=== PATIENT | female | born 1990 | race American Indian/Alaskan Native ===

== ENCOUNTER 2021-04-24 12:59 | Emergency (ER) | payer OTHER ==
[2021-04-24 13:11] VITALS: BP 145/94
--- NOTE | 2021-04-24 14:06 | Emergency Department Report ---
ED General Adult HPI - General Chief complaint: Extremity Problem,Nontraumatic Stated complaint: CHEST PAIN,PAIN AND NUMBNESS IN RT LEG Time Seen by Provider: 04/24/21 13:52 Source: patient Mode of arrival: Ambulatory Limitations: No Limitations - History of Present Illness Initial comments: 31-year-old -[place] female patient without past medical history presents with complaints of bilateral lower leg pain x3 to 4 months. She states the pain is intermittent and shooting in sometimes tingling. She states she came in today because the pain has suddenly worsened in the right leg after a plane ride to [place]. She denies any swelling, weakness/difficulty with ambulation, back pain/injuries, history of cancer, or skin changes. She also denies hormone use, history of DVT/PE, cough, shortness of breath, or chest pain. She rates her current pain as 8/10 in severity and states it occurs only with ambulation and to touch. No direct injuries to the legs per patient. Patient also reports intermittent bruising to the legs with out injury. No history of anemia or other bleeding disorders per patient - Related Data Allergies Allergy/AdvReac Type Severity Reaction Status Date / Time No Known Allergies Allergy Verified 04/24/21 13:10 ED Review of Systems ROS: Stated complaint: CHEST PAIN,PAIN AND NUMBNESS IN RT LEG Other details as noted in HPI Constitutional: denies: chills, fever Respiratory: denies: cough, shortness of breath Cardiovascular: denies: chest pain Gastrointestinal: denies: abdominal pain Musculoskeletal: denies: back pain, joint swelling, arthralgia Skin: denies: lesions, change in color Neurological: denies: headache, numbness, abnormal gait Hematological/Lymphatic: easy bruising ED Past Medical Hx - Past Medical History Previous Medical History?: No - Surgical History Past Surgical History?: No ED Physical Exam - General Limitations: No Limitations General appearance: alert, in no apparent distress - Head Head exam: Present: atraumatic, normocephalic - Eye Eye exam: Present: normal appearance. Absent: scleral icterus - Neck Neck exam: Present: normal inspection - Respiratory Respiratory exam: Present: normal lung sounds bilaterally. Absent: respiratory distress - Cardiovascular Cardiovascular Exam: Present: regular rate, normal rhythm - Extremities Exam Extremities exam: Present: calf tenderness (right), other (Pedal pulses are normal bilaterally; no skin changes noted to the lower extremity) - Back Exam Back exam: Present: full ROM - Neurological Exam Neurological exam: Present: alert, oriented X3, normal gait - Psychiatric Psychiatric exam: Present: normal affect, normal mood - Skin Skin exam: Present: warm, dry, intact, normal color. Absent: rash ED Course Vital Signs 04/24/21 13:10 Temperature 98.9 F Pulse Rate 97 H Respiratory 19 Rate Blood Pressure 145/94 O2 Sat by Pulse 96 Oximetry ED Medical Decision Making - Lab Data Result diagrams: 04/24/21 14:40 04/24/21 14:40 Lab Results 04/24/21 04/24/21 04/24/21 Range/Units 14:40 14:40 14:40 WBC 9.5 (4.5-11.0) K/mm3 RBC 4.11 (3.65-5.03) M/mm3 Hgb 12.4 (10.1-14.3) gm/dl Hct 37.5 (30.3-42.9) % MCV 91 (79-97) fl MCH 30 (28-32) pg MCHC 33 (30-34) % RDW 13.6 (13.2-15.2) % Plt Count 402 (140-440) K/mm3 Lymph % (Auto) 24.2 (13.4-35.0) % [place] % (Auto) 6.9 (0.0-7.3) % Eos % (Auto) 0.8 (0.0-4.3) % Baso % (Auto) 0.4 (0.0-1.8) % Lymph # (Auto) 2.3 (1.2-5.4) K/mm3 [place] # (Auto) 0.7 (0.0-0.8) K/mm3 Eos # (Auto) 0.1 (0.0-0.4) K/mm3 Baso # (Auto) 0.0 (0.0-0.1) K/mm3 Seg Neutrophils % 67.7 (40.0-70.0) % Seg Neutrophils # 6.4 (1.8-7.7) K/mm3 PT 12.3 (12.2-14.9) Sec. INR 0.87 (0.87-1.13) APTT 29.7 (24.2-36.6) Sec. Sodium 139 (137-145) mmol/L Potassium 4.6 (3.6-5.0) mmol/L Chloride 103.6 (98-107) mmol/L Carbon Dioxide 25 (22-30) mmol/L Anion Gap 15 mmol/L BUN 8 (7-17) mg/dL Creatinine 0.6 (0.6-1.2) mg/dL Estimated GFR > 60 ml/min BUN/Creatinine Ratio 13 % Glucose 108 H (65-100) mg/dL Calcium 9.4 (8.4-10.2) mg/dL Total Bilirubin 0.30 (0.1-1.2) mg/dL AST 26 (5-40) units/L ALT 36 (7-56) units/L Alkaline Phosphatase 75 (35-129) units/L Total Protein 7.0 (6.3-8.2) g/dL Albumin 4.4 (3.9-5) g/dL Albumin/Globulin Ratio 1.7 % - Radiology Data Radiology results: report reviewed DUPLEX DOPPLER LOWER EXTREMITY VEINS, RIGHT INDICATION / CLINICAL INFORMATION: pain, recent travel. TECHNIQUE: Duplex doppler imaging was performed through the veins of the right lower extremity using venous compression and other maneuvers. COMPARISON: None available. FINDINGS: RIGHT COMMON FEMORAL VEIN: Negative. RIGHT FEMORAL VEIN: Negative. RIGHT POPLITEAL VEIN: Negative. RIGHT CALF VEINS: Negative. ADDITIONAL FINDINGS: None. IMPRESSION: 1. No sonographic evidence for DVT in the right lower extremity. - Medical Decision Making 31-year-old -[place] female patient without past medical history presents with complaints of bilateral lower leg pain x3 to 4 months. She states the pain is intermittent and shooting in sometimes tingling. She states she came in today because the pain has suddenly worsened in the right leg after a plane ride to [place]. She denies any swelling, weakness/difficulty with ambulation, back pain/injuries, history of cancer, or skin changes. She also denies hormone use, history of DVT/PE, cough, shortness of breath, or chest pain. She rates her current pain as 8/10 in severity and states it occurs only with ambulation and to touch. No direct injuries to the legs per patient. Patient also reports intermittent bruising to the legs with out injury. No history of anemia or other bleeding disorders per patient No significant abnormalities noted on CBC, CMP, or PT and INR. Ultrasound is negative for any DVT. Ibuprofen and Tylenol recommended as needed for pain. Blood pressure elevated, patient denies history of hypertension. Recommend patient follows up for further evaluation with PCP in 2 to 3 days and repeat of her blood pressure. She is well-appearing and stable for discharge home. Discussed plan of care and strict return precautions in detail patient who verbalizes understanding. Critical care attestation.: If time is entered above; I have spent that time in minutes in the direct care of this critically ill patient, excluding procedure time. ED Disposition Clinical Impression: Leg pain, Bruising, Elevated blood pressure reading Disposition: HOME / SELF CARE / HOMELESS Is pt being admited?: No Condition: Stable Instructions: Muscle Pain, Adult, Contusion Referrals: [facility] [Provider Group] - 3-5 Days
--- NOTE | 2021-04-24 14:41 | Vascular Lab Report ---
DUPLEX DOPPLER LOWER EXTREMITY VEINS, RIGHT INDICATION / CLINICAL INFORMATION: pain, recent travel. TECHNIQUE: Duplex doppler imaging was performed through the veins of the right lower extremity using venous comp ression and other maneuvers. COMPARISON: None available. FINDINGS: RIGHT COMMON FEMORAL VEIN: Negative. RIGHT FEMORAL VEIN: Negative. RIGHT POPLITEAL VEIN: Negative. RIGHT CALF VEINS: Negative. ADDITIONAL FINDINGS: None. IMPRESSION: 1. No sonographic evidence for DVT in the right lower extremity. Signer Name: Juan M Ramírez MD Signed: 04/24/2021 2:37 PM Workstation Name: [id number]
[2021-04-24 15:03] LABS: Basophils % (Auto) 0.4 % (0.0-1.8); Eosinophils # (Auto) 0.1 K/mm3 (0.0-0.4); Eosinophils % (Auto) 0.8 % (0.0-4.3); Hematocrit 37.5 % (30.3-42.9); Hemoglobin 12.4 gm/dl (10.1-14.3); Lymphocytes # (Auto) 2.3 K/mm3 (1.2-5.4); Lymphocytes % (Auto) 24.2 % (13.4-35.0); Mean Corpuscular HGB Conc 33 % (30-34); Mean Corpuscular Volume 91 fl (79-97); Monocytes # (Auto) 0.7 K/mm3 (0.0-0.8); Monocytes % (Auto) 6.9 % (0.0-7.3); Platelet Count 402 K/mm3 (140-440); Red Blood Count 4.11 M/mm3 (3.65-5.03); Red Cell Distribution Width 13.6 % (13.2-15.2)
[2021-04-24 15:29] LABS: Alanine Aminotransferase 36 units/L (7-56); Albumin 4.4 g/dL (3.9-5); Blood Urea Nitrogen 8 mg/dL (7-17); Calcium 9.4 mg/dL (8.4-10.2); Hemolysis Index 31
[2021-04-24 15:36] LABS: BUN/Creatinine Ratio 13
[2021-04-24 15:51] LABS: INR 0.87 (0.87-1.13); Partial Thromboplastin Time 29.7 Sec. (24.2-36.6)
== END 2021-04-24 16:50 | disposition home or self-care (01) ==
LOC: ED 12:59
DX: S80.12XA Contusion of left lower leg, initial encounter (principal); S80.11XA Contusion of right lower leg, initial encounter; R03.0 Elevated blood-pressure reading, without diagnosis of hypertension; X58.XXXA Exposure to other specified factors, initial encounter; Y93.89 Activity, other specified; Y92.488 Other paved roadways as the place of occurrence of the external cause; Y99.8 Other external cause status
CPT/HCPCS: 36415; 80053; 84703; 85025; 85610; 85730; 99283